=== PATIENT | female | born 1985 | race Caucasian/White ===

== ENCOUNTER 2024-11-07 07:38 | Emergency (ER) | payer MEDICARE, OTHER ==
[~2024-11-07] VITALS: Ht 160 cm; Wt 77.3 kg
[2024-11-07] MEDS ORDERED: ONDANSETRON HCL/PF 4 MG/2 ML VIAL ONE (08:35)
[2024-11-07] MEDS ORDERED: LORAZEPAM 1 MG TABLET ONE (08:36)
[2024-11-07 08:39] LABS: BASOPHILS # (AUTO) 0.1 K/uL (0.0-0.2); BASOPHILS % (AUTO) 1.2 % (0.0-2.0); EOSINOPHILS # (AUTO) 0.2 K/uL (0.0-0.7); EOSINOPHILS % (AUTO) 1.8 % (0.0-6.0); HEMATOCRIT 37 % (33-45); HEMOGLOBIN 12.5 g/dL (11.5-14.8); LYMPHOCYTES % (AUTO) 39.4 % (20.0-44.0); MEAN CORPUSCULAR HEMOGLOBIN 28 PG (26.0-33.0); MEAN CORPUSCULAR HGB CONC 34 g/dl (31.0-36.0); MEAN CORPUSCULAR VOLUME 83 fL (82-100); MONOCYTES # (AUTO) 0.7 K/uL (0.1-1.30); NEUTROPHILS # (AUTO) 5.1 K/uL (1.8-8.9); NEUTROPHILS % (AUTO) 50.6 % (43.0-81.0); PLATELET COUNT (AUTO) 324 K/uL (150-450); RED BLOOD CELL COUNT(AUTO) 4.41 MIL/uL (4.0-5.2); RED CELL DISTRIBUTION WIDTH 13.5 % (11.5-15.0); WHITE BLOOD COUNT (AUTO) 10.1 K/uL (4.3-11.0)
[2024-11-07] MEDS: IV NS 0.9% 1,000 ML BAG IV ONE (08:45)
[2024-11-07 08:46] LABS: CREATININE 0.9 mg/dL (0.6-1.3); POTASSIUM 2.9 mmol/L (3.5-5.1)
[2024-11-07 08:47] LABS: APPEARANCE,URINE CLEAR (CLEAR); BILIRUBIN,URINE NEGATIVE (NEGATIVE); BLOOD, URINE 1+ Ery/uL (NEGATIVE); COLOR,URINE YELLOW (YELLOW); KETONES,URINE TRACE mg/dL (NEGATIVE); LEUKOCYTE ESTERASE ,URINE NEGATIVE (NEGATIVE); NITRITE, URINE NEGATIVE (NEGATIVE); PROTEIN,URINE NEGATIVE (NEGATIVE); UGLUCOSE NEGATIVE (NEGATIVE); UROBILINOGEN,URINE 0.2 EU/dL (0.2)
[2024-11-07] MEDS: LORAZEPAM 1 MG TABLET PO ONE (08:47)
[2024-11-07] MEDS: ONDANSETRON HCL/PF - ER 4 MG/2 ML VIAL IV ONE (08:47)
[2024-11-07 08:48] LABS: PREGNANCY TEST URINE QUAL NEGATIVE (NEGATIVE)
[2024-11-07 08:52] LABS: ALBUMIN 3.6 g/dL (3.4-5.0); BILIRUBIN,DIRECT 0.1 mg/dL (0.0-0.2); BILIRUBIN,TOTAL 0.2 mg/dL (0.2-1.0); TOTAL PROTEIN, SERUM 7.2 g/dL (6.4-8.2)
[2024-11-07 08:59] LABS: ADD URINE CULTURE NO; BACTERIA,URINE Few /HPF (None Seen)
[2024-11-07 09:00] LABS: CALCIUM OXALATE CRYSTALS,UR Rare /HPF (None Seen)
[2024-11-07] MEDS: POTASSIUM CHLORIDE 20 MEQ TAB.PRT.SR PO ONE (09:43)
[2024-11-07 11:51] LABS: AMPHETAMINE, URINE NEGATIVE (NEGATIVE); BARBITURATE, URINE NEGATIVE (NEGATIVE); BENZODIAZEPINE, URINE NEGATIVE (NEGATIVE); CANNABINOID, URINE NEGATIVE (NEGATIVE); COCCAINE, URINE NEGATIVE (NEGATIVE); OPIATE, URINE NEGATIVE (NEGATIVE); PHENCYCLIDINE SCREEN,URINE NEGATIVE (NEGATIVE)
[2024-11-07] MEDS: IV NS 0.9% 500 ML BAG IV ONE (12:20)
[2024-11-07 14:11] VITALS: BP 99/64; TEMP 98.2; O2SAT 97
== END 2024-11-07 14:13 | disposition home or self-care (01) ==
LOC: ER 07:55
DX: F10.129 Alcohol abuse with intoxication, unspecified (principal); R00.0 Tachycardia, unspecified; R06.00 Dyspnea, unspecified; R07.9 Chest pain, unspecified; R45.1 Restlessness and agitation; Z88.1 Allergy status to other antibiotic agents; Y90.9 Presence of alcohol in blood, level not specified
CPT/HCPCS: 99285; 96374; 71045; 96361; 93005; 85025; 80048; 80076; 84703; 36415; 80307; 81001; J2405 ×2; J7030 ×2